=== PATIENT | male | born 1950 | race Caucasian/White ===

== ENCOUNTER 2024-04-23 14:41 | Emergency (ER) | payer MEDICARE, SELFPAY ==
[2024-04-23 14:48] VITALS: BP 134/74; PULSE 74; TEMP 36.6; O2SAT 95; BMI 36.2
--- NOTE | 2024-04-23 15:07 | XR_ITS ---
The [address] [address] Patient Name: FELIX BAILEY MRN: [id number] date: 1950 Sex: M Assigned Patient Location: ER Current Patient Location: ED.MAIN Accession/Order Number: [id number] Exam Date: 04/23/2024 15:20 Report Date: 04/23/2024 15:42 At the request of: JOSH RESTREPO Procedure: XR foot RT min 3V EXAM: XR foot RT min 3V HISTORY: pain, 1st MTP COMPARISON: None. TECHNIQUE: AP, oblique, lateral x-ray right foot. FINDINGS: Motion artifact. No fracture or healing fracture. Degenerative changes interphalangeal joint great toe. No destructive process or periosteal reaction. Vascular soft tissue calcic dictation. Remaining joints unremarkable. Degenerative spurring around the ankle and posterior and plantar calcaneus. XR/XR foot RT min 3V IMPRESSION: Negative for fracture. Degenerative changes mild in are felt a joint great toe. No erosive or destructive process. Electronically authenticated by: SB ALTMAN Date: 04/23/2024 15:42
--- NOTE | 2024-04-23 15:18 | ED_ITS ---
HPI HPI - General Adult General Chief complaint: Extremity Problem, Nontraumatic Stated complaint: LOWER EXTREMITY PAIN Time Seen by Provider: 04/23/24 14:42 Source: patient and family Mode of arrival: Wheelchair Limitations: no limitations History of Present Illness HPI narrative: 73-year-old male to the emergency department chief complaint of pain in his right great toe. Patient reports that about a week ago he began to experience some swelling and pain in his right great toe. No history of gout. No injuries. He does report that he broke this toe in his 20s and does not believe that the joint never healed well at the first MTP. He has not had any fever, sweats, chills. No injury that he knows of. Related Data Home Medications ?Medication ?Instructions ?Recorded ?Confirmed amlodipine 10 mg tablet 10 mg PO DAILY 04/23/24 04/23/24 atorvastatin 80 mg tablet 80 mg PO DAILY 04/23/24 04/23/24 carvedilol 12.5 mg tablet 12.5 mg PO BID 04/23/24 04/23/24 furosemide 40 mg tablet 40 mg PO Q8H 04/23/24 04/23/24 potassium chloride 10 mEq 10 meq PO DAILY 04/23/24 04/23/24 tablet,extended release (Klor-Con) valsartan 320 mg tablet 320 mg PO DAILY 04/23/24 04/23/24 Previous Rx's ?Medication ?Instructions ?Recorded hydrocodone 5 mg-acetaminophen 325 1 tab PO Q6H PRN pain 3 days #12 04/23/24 mg tablet tabs prednisone 20 mg tablet 40 mg (2 x 20 mg) PO DAILY 5 days 04/23/24 #10 tabs Allergies Allergy/AdvReac Type Severity Reaction Status Date / Time No Known Drug Allergies Allergy Verified 04/23/24 14:50 Opioid HPI Opioid Management Most Recent Opioid Data: No Data to Display Review of Systems ROS Status of ROS 10 or more systems reviewed and unremark able except as noted in history and below Exam Narrative Exam Narrative: VITALS: I have reviewed the triage vital signs. GENERAL: Well developed, well appearing adult in no acute distress. NEURO: Alert and oriented. Moves all extremities. Face is symmetric and expressive. EYES: PERRL. No scleral icterus or conjunctival injection. No discharge. HENT: Normocephalic, atraumatic. Hearing is grossly intact. Nares grossly patent and without discharge. Mucous membranes moist. NECK: No JVD. Patient moves neck without restriction. Right lower extremity: DP and PT pulses intact. There is a small amount of warmth and swelling about the first MTP. No wounds. SKIN: Warm and dry. Normal turgor. No rash or lesions appreciated. PSYCH: Mood, affect, and interaction is appropriate to the setting. Constitutional Vital Signs, click to edit/add: Last Vital Signs Temp 97.8 F 04/23/24 14:48 Pulse 74 04/23/24 14:48 Resp 18 04/23/24 14:48 BP 134/74 04/23/24 14:48 Pulse Ox 95 04/23/24 14:48 O2 Del Method Room Air 04/23/24 14:48 Course Vital Signs Vital signs: Vital Signs Temperature 97.8 F 04/23/24 14:48 Pulse Rate 74 04/23/24 14:48 Respiratory Rate 18 04/23/24 14:48 Blood Pressure 134/74 04/23/24 14:48 Pulse Oximetry 95 04/23/24 14:48 Oxygen Delivery Method Room Air 04/23/24 14:48 Temperature 97.8 F 04/23/24 14:48 Pulse Rate 74 04/23/24 14:48 Respiratory Rate 18 04/23/24 14:48 Blood Pressure 134/74 04/23/24 14:48 Pulse Oximetry 95 04/23/24 14:48 Oxygen Delivery Method Room Air 04/23/24 14:48 Medical Decision Making MDM Narrative Medical decision making narrative: 73-year-old male to the emergency department chief complaint of pain in his right great toe. Vital stable, the patient is afebrile. X-ray to be obtained. Clinical exam is consistent with gout. Do not believe this represents septic arthritis. X-ray without any periosteal reaction, destructive process, acute fracture. Will treat as gout, podiatry referral given. Patient agrees with this plan. Prednisone and Amite prescribed. Return precautions discussed. All questions were answered. The patient was discharged home. Medical Records Medical records reviewed: Yes I reviewed the patient's medical records Imaging Data X-ray foot: Radiologist's impression: ITS Impressions Foot X-Ray 04/23/24 15:07 IMPRESSION: Negative for fracture. Degenerative changes mild in are felt a joint great toe. No erosive or destructive process. Electronically authenticated by: SB ALTMAN Date: 04/23/2024 15:42 Discharge Plan Discharge Stand Alone Forms: Portal Instructions Chief Complaint: Extremity Problem, Nontraumatic Clinical Impression: Gout Patient Disposition: Home, Self-Care Time of Disposition Decision: 15:58 Condition: Good Mode of Transportation: Private Vehicle Prescriptions / Home Meds: New hydrocodone-acetaminophen 5-325 mg tablet 1 tab PO Q6H PRN (Reason: pain) 3 Days Qty: 12 0RF prednisone 20 mg tablet 40 mg PO DAILY 5 Days Qty: 10 0RF No Action atorvastatin 80 mg tablet 80 mg PO DAILY valsartan 320 mg tablet 320 mg PO DAILY amlodipine 10 mg tablet 10 mg PO DAILY carvedilol 12.5 mg tablet 12.5 mg PO BID Rx Instructions: must administer with a meal/food potassium chloride [Klor-Con 10] 10 mEq tablet extended release 10 meq PO DAILY furosemide 40 mg tablet 40 mg PO Q8H Print Language: Luxembourgish Instructions: Gout (ED) Additional Instructions: Call the office of your primary care doctor to arrange for follow-up within the above-stated timeframe. Your ED visit was focused on your acute issue and does not replace primary care. You should review your labs, imaging, and diagnoses from this ED visit with your primary care physician. There may be non-emergent/ incidental findings that need further evaluation. You should review your vital signs including blood pressure with your PCP. If you were prescribed medications you should discuss possible side-effects and drug interactions with your pharmacist. Call 911 or go to the nearest Emergency Department if you develop any new or worsening symptoms. Referrals: JAMES BROWN [Primary Care Provider] - 1 week Vic Bella DPM [Physician] - 1 week
== END 2024-04-23 16:28 | disposition home or self-care (01) ==
PROVIDERS: Emergency Provider Student in an Organized Health Care Education/Training Program; Family Provider Family Medicine; PCP Family Medicine
DX: M10.9 Gout, unspecified (principal)
CPT/HCPCS: 73630; 99283